=== PATIENT | female | born 2000 | race Caucasian/White ===

== ENCOUNTER 2022-03-22 09:29 | Emergency (ER) | payer BC ==
[2022-03-22] MEDS ORDERED: Lactated Ringer's 1,000 ML ONE (10:03)
[2022-03-22] MEDS ORDERED: Ondansetron PF 4 MG/2 ML Vial ONE (10:03)
[2022-03-22 10:05] LABS: #Basophils 0.1 thou/uL (0.0-0.2); #Eosinphils 0.6 thou/uL (0.0-0.7); #Lymphocytes 2.1 thou/uL (1.20-3.40); #Monocytes 0.4 thou/uL (0.11-0.59); #Neutrophils 4.1 thou/uL (1.40-6.50); %Basophils 1.7 % (0.0-1.0); %Monocytes 5.9 % (0.0-10.0); %Neutrophils 55.4 % (42.0-75.0); Mean Corpuscular HGB CONC 33.2 g/dL (32.0-36.0); Mean Corpuscular Hemoglobin 27.3 pg (27.0-31.0); Mean Corpuscular Volume 82.3 fL (78.0-98.0); Mean Platelet Volume 9.6 fL (7.4-10.4); Platelet Count 253 thou/uL (130-400); RBC Distribution Width 13.8 % (11.5-14.5); Red Blood Cell (RBC) Count 4.75 mill/uL (4.20-5.40); White Blood Cell (WBC) Count 7.4 thou/uL (4.8-10.8)
[2022-03-22 10:11] LABS: Prothrombin Time 13.7 sec (12.0-14.7)
[2022-03-22 10:12] LABS: PTT 30.3 sec (22.9-36.1)
[2022-03-22] MEDS ORDERED: Ketorolac Tromethamine 30 MG/ML VIAL ONE (10:34)
== END 2022-03-22 10:59 | disposition home or self-care (01) ==
LOC: MADERS 09:29
DX: N93.9 Abnormal uterine and vaginal bleeding, unspecified (principal); N94.6 Dysmenorrhea, unspecified; F17.210 Nicotine dependence, cigarettes, uncomplicated
CPT/HCPCS: 84702; 85025; 85610; 85730; 86900; 86901; 94760; 96361; 96374; 96375; J1885; J2405; J7120

== ENCOUNTER 2022-06-11 09:51 | Emergency (ER) | payer SELFPAY ==
[2022-06-11] MEDS ORDERED: Ondansetron ODT 4 MG TAB ONE (10:30)
[2022-06-11] MEDS ORDERED: Ibuprofen 800 MG TAB ONE (10:30)
== END 2022-06-11 11:30 | disposition home or self-care (01) ==
LOC: MADERS 09:51
DX: J06.9 Acute upper respiratory infection, unspecified (principal); F17.210 Nicotine dependence, cigarettes, uncomplicated; Z20.822 Contact with and (suspected) exposure to COVID-19
CPT/HCPCS: 87804; 99283; Q0162; U0003; U0005